=== PATIENT | male | born 1970 | race American Indian/Alaskan Native ===

== ENCOUNTER 2018-06-20 02:53 | Emergency (ER) | payer SELFPAY ==
[2018-06-20 03:18] VITALS: RESP 18
--- NOTE | 2018-06-20 03:20 | ED PDOC ---
Arrival/HPI - General Time Seen by Provider: 06/20/18 02:57 Historian: Patient, Police - History of Present Illness Narrative History of Present Illness (Text): 06/20/18 03:17 Khris Washington is a 47 year old male, whose past medical history includes substance abuse, who presents to the Emergency department brought in by [facility] for substance abuse. As per police, patient was found using heroin earlier tonight. Patient reports he snorted heroin tonight prior to arrest by police.Patient possibly may have swallowed a "couple of bags of heroin". Patient denies any suicidal ideation, fever, chills, chest pain, shortness of breath, nausea, vomiting, diarrhea, urinary symptoms, back pain, neck pain, headache, dizziness, or any other complaints. Symptom Onset: Gradual Symptom Course: Unchanged Activities at Onset: Light Context: Street Past Medical History - Provider Review Nursing Documentation Reviewed: Yes Family/Social History - Physician Review Nursing Documentation Reviewed: Yes Family/Social History: Unknown Family HX Allergies/Home Meds Allergies/Adverse Reactions: Allergies shrimp Adverse Reaction (Verified 06/20/18 03:01) URTICARIA Home Medications: Home Meds Medication Instructions Recorded Confirmed No Known Home Med 06/20/18 06/20/18 Review of Systems - Physician Review All systems were reviewed & negative as marked: Yes - Review of Systems Constitutional: Normal. absent: Fevers Eyes: Normal ENT: Normal Respiratory: Normal. absent: SOB, Cough Cardiovascular: Normal. absent: Chest Pain Gastrointestinal: Normal. absent: Abdominal Pain, Diarrhea, Nausea, Vomiting Genitourinary Male: Normal. absent: Dysuria, Frequency, Hematuria, Urinary Output Changes Musculoskeletal: Normal. absent: Back Pain, Neck Pain Skin: Normal. absent: Rash Neurological: Normal. absent: Headache, Dizziness Endocrine: Normal Hemo/Lymphatic: Normal Psychiatric: Other (+substance abus) Physical Exam Vital Signs Reviewed: Yes Vital Signs Temp Pulse Resp BP Pulse Ox 06/20/18 02:54 98 F 76 18 148/93 H 100 Temperature: Afebrile Blood Pressure: Normal Pulse: Regular Respiratory Rate: Normal Appearance: Positive for: Well-Appearing, Non-Toxic, Comfortable Pain Distress: None Mental Status: Positive for: Alert and Oriented X 3 - Systems Exam Head: Present: Atraumatic, Normocephalic Pupils: Present: PERRL Extroacular Muscles: Present: EOMI Conjunctiva: Present: Normal Mouth: Present: Moist Mucous Membranes Neck: Present: Normal Range of Motion Respiratory/Chest: Present: Clear to Auscultation, Good Air Exchange. No: Respiratory Distress, Accessory Muscle Use Cardiovascular: Present: Regular Rate and Rhythm, Normal S1, S2. No: Murmurs Abdomen: No: Tenderness, Distention, Peritoneal Signs Back: Present: Normal Inspection Upper Extremity: Present: Normal Inspection. No: Cyanosis, Edema Lower Extremity: Present: Normal Inspection. No: Edema Neurological: Present: GCS=15, CN II-XII Intact, Speech Normal Skin: Present: Warm, Dry, Normal Color. No: Rashes Psychiatric: Present: Alert, Oriented x 3, Normal Insight, Normal Concentration Medical Decision Making ED Course and Treatment: 06/20/18 03:17 Impression: 47 year old male brought in by [facility] after snorting/swallowing heroin tonight. Differential Diagnosis included but are not limited to: substance abuse Plan: -- EKG -- Chest X-ray -- Labs, alcohol level -- Urine drug screen -- Reassess and disposition Progress Notes: Patient refusing any bloodwork or further evaluation, states he wants to leave and denies any complaints. Discussed with patient the risks of leaving against medical advice, including but not limited to, drug overdose. Patient continued to want to leave against medical advice. I have personally explained to the patient that choosing to do so may result in drug overdose, permanent bodily harm, or . I have discussed at great length that without further evaluation and monitoring there may be unforeseen circumstances and/or deterioration causing permanent bodily harm or as a result of their choice. The patient is alert, oriented, and shows the mental capacity to make clear decisions regarding the patients health care at this time. The patient continues to wish to leave against medical advice. In light of the patients decision to leave against medical advice, patient has been advised that they should return to the emergency room immediately if they change their mind at any time, or if their condition begins to change or worsen in any way. Patient discharged to custody of police. - RAD Interpretation Radiology Orders: 06/20/18 03:19 CHEST PORTABLE [RAD] Stat - Scribe Statement The provider has reviewed the documentation as recorded by the Lance Fabian Provider Scribe Attestation: All medical record entries made by the Scribe were at my direction and personally dictated by me. I have reviewed the chart and agree that the record accurately reflects my personal performance of the history, physical exam, medical decision making, and the department course for this patient. I have also personally directed, reviewed, and agree with the discharge instructions and disposition. Disposition/Present on Arrival - Present on Arrival Any Indicators Present on Arrival: No - Disposition Have Diagnosis and Disposition been Completed?: Yes Diagnosis: Heroin abuse Disposition: AGAINST MEDICAL ADVICE Disposition Time: 03:50 Patient Problems: Current Active Problems Problem Status Onset Heroin abuse Acute Condition: STABLE
[2018-06-20 04:29] VITALS: BP 133/70; PULSE 90; TEMP 98.6
[2018-06-20 04:33] VITALS: O2SAT 99
--- NOTE | 2018-06-20 09:32 | RAD ---
Date of service: 06/20/2018 HISTORY: medical clearance COMPARISON: No prior. FINDINGS: LUNGS: No active pulmonary disease. PLEURA: No significant pleural effusion identified, no pneumothorax apparent. CARDIOVASCULAR: Normal. OSSEOUS STRUCTURES: No significant abnormalities. VISUALIZED UPPER ABDOMEN: Normal. OTHER FINDINGS: None. IMPRESSION: No active disease.
== END 2018-06-20 04:32 | disposition left against medical advice (07) ==
LOC: ED 02:53
DX: F11.10 Opioid abuse, uncomplicated (principal)